=== PATIENT | female | born 1960 | race Caucasian/White ===

== ENCOUNTER 2020-05-05 09:26 | Emergency (ER) | payer MEDICARE, MEDICAID ==
--- NOTE | 2020-05-05 10:36 | ED Physician Documentation ---
PD HPI BACK PAIN - Stated complaint Stated Complaint: PX IN LEGS, DIFFICULTY WALKING - Chief complaint Chief Complaint: Back Pain - History obtained from History obtained from: Patient - History of Present Illness Timing - details: Abrupt onset (She does have history of chronic low back pain which is generally mild to moderate. She denies daily pain medicines. She has had a significant increase in the back pain over the last several days to a week with weakness of the right leg in particular and pain radiating. Difficulty walking.), Still present Location: Lower, Right (mostly), Left Quality: Pain, Aching Associated symptoms: Weakness (right leg), Numbness (some both legs, more to right, anterolateral thigh and anterior lower leg.). No: Fever Improves with: No: Rest, Meds Worsened by: Movement. No: Palpation Contributing factors: No: Lifting, Twisting, Anticoagulated Similar symptoms before: Diagnosis (History of low back pain with prior lumbar surgery in 2001. Occasional pains at times and then more consistent recently but only in the last few weeks has it been significantly hurting and now progressive weakness and numbness of the leg.) Recently seen: Not recently seen Review of Systems Constitutional: denies: Fever, Chills Nose: denies: Rhinorrhea / runny nose, Congestion Throat: denies: Sore throat Respiratory: denies: Cough GI: denies: Abdominal Pain, Nausea, Vomiting, Diarrhea Skin: denies: Rash, Lesions Musculoskeletal: reports: Neck pain (Has neck pain with prior neck fusion and has a eye specialist in [place]. She actually had an appointment with him next week regarding her neck), Back pain. denies: Extremity pain Neurologic: reports: Focal weakness (right leg, with it not being able to support her with walking, causing falling.), Numbness (some both legs, left more chronic, but acutely with right lower leg numbness anteriorly to foot.), Other (no numbness in perineal area.) Psychiatric: denies: Depressed Immunocompromised: denies: Immunocompromised PD PAST MEDICAL HISTORY - Past Medical History Past Medical History: Yes Cardiovascular: None Respiratory: None Neuro: Other Endocrine/Autoimmune: None GI: None Psych: Depression, Anxiety Musculoskeletal: Chronic back pain (but only mild level) Other Past Medical History: Berenice Perez - Past Surgical History Past Surgical History: Yes General: Cholecystectomy, Colonoscopy /ASSISTANT PROFESSOR OF NURSING: section, Tubal ligation, Hysterectomy - Present Medications Home Medications: Ambulatory Orders Medication Instructions Recorded Confirmed Albuterol Sulfate [Proair 90 mcg INH PRN PRN 05/05/20 05/05/20 Respiclick] Cholecalciferol [Vitamin D3] 5,000 unit PO BID 05/05/20 05/05/20 Cyclobenzaprine [Flexeril] 10 mg PO DAILY 05/05/20 05/05/20 Eletriptan HBr [Relpax] 20 mg PO DAILY 05/05/20 05/05/20 Escitalopram [Lexapro] 10 mg PO DAILY 05/05/20 05/05/20 Gabapentin [Neurontin] 300 mg PO DAILY 05/05/20 05/05/20 [place]-3 Fatty Acids/Fish Oil 1 each PO DAILY 05/05/20 05/05/20 [[place] [facility]-3 Fish Oil 1,000 mg Sfgl] Potassium Chloride 10 meq PO DAILY 05/05/20 05/05/20 Zolpidem Tartrate [Ambien] 10 mg PO DAILY 05/05/20 05/05/20 - Allergies Allergies/Adverse Reactions: Allergies Allergy/AdvReac Type Severity Reaction Status Date / Time acetaminophen [From Vicodin] Allergy Unknown Verified 05/05/20 09:44 bee venom protein (honey bee) Allergy Unknown Verified 05/05/20 09:44 bupropion [From Wellbutrin] Allergy Unknown Verified 05/05/20 09:44 codeine Allergy Unknown Verified 05/05/20 09:44 duloxetine [From Cymbalta] Allergy Unknown Verified 05/05/20 09:44 hydrocodone [From Vicodin] Allergy Unknown Verified 05/05/20 09:44 hydromorphone [From Dilaudid] Allergy Nausea Verified 05/05/20 09:44 ibuprofen Allergy Unknown Verified 05/05/20 09:44 methylphenidate Allergy Unknown Verified 05/05/20 09:44 [From Ritalin] pravastatin Allergy Unknown Verified 05/05/20 09:44 trazodone Allergy Unknown Verified 05/05/20 09:44 vaccines Allergy Unknown Uncoded 05/05/20 09:44 - Social History Does the pt smoke?: No Smoking Status: Never smoker Does the pt drink ETOH?: Yes Does the pt have substance abuse?: No - Immunizations Immunizations are current?: Yes PD ED PE NORMAL - Vitals Vital signs reviewed: Yes - General General: Alert and oriented X 3, Well developed/nourished, Other (appears in pain from low back) - Neck Neck: Supple, no meningeal sign, No adenopathy - Cardiac Cardiac: RRR, No murmur - Respiratory Respiratory: Clear bilaterally - Abdomen Abdomen: Normal bowel sounds, Soft, Non tender, Non distended, Other (obese) - Female Female : Deferred - Rectal Rectal: Other (normal sensation in perirectal area and normal muscle tone. Able to hold urine. normal sensation outer labial area. ) - Derm Derm: Normal color, Warm and dry - Extremities Extremities: No edema, No calf tenderness / cord - Neuro Neuro: Alert and oriented X 3, Other (Leg weakness for extension at knee, but good movement ankle and toes on right. Left with good movement. Decreased sensation right leg anterior thigh/anteromedial lower leg. Diminished reflex right knee. Okay at achilles. ) Eye Opening: Spontaneous Motor: Obeys Commands Verbal: Oriented GCS Score: 15 - Psych Psych: Normal mood Results - Vitals Vitals: Vital Signs - 24 hr 05/05/20 05/05/20 05/05/20 09:30 11:38 14:18 Temperature 36.2 C L Heart Rate 98 86 105 H Respiratory 16 18 18 Rate Blood Pressure 154/116 H 155/89 H 169/94 H O2 Saturation 100 100 99 Oxygen O2 Source Room air - Labs Labs: Laboratory Tests 05/05/20 05/05/20 11:29 11:29 WBC 7.7 RBC 5.10 Hgb 14.1 Hct 45.3 MCV 88.8 MCH 27.6 MCHC 31.1 L RDW 13.8 Plt Count 289 MPV 10.4 Neut # (Auto) 3.9 Lymph # (Auto) 3.0 Fisher # (Auto) 0.6 Eos # (Auto) 0.1 Baso # (Auto) 0.0 Absolute Nucleated RBC 0.00 Nucleated RBC % 0.0 Sodium 137 Potassium 3.9 Chloride 97 L Carbon Dioxide 28 Anion Gap 12.0 BUN 14 Creatinine 0.7 Estimated GFR (MDRD) 86 L Glucose 98 Calcium 9.1 Total Bilirubin 0.9 AST 20 ALT 23 Alkaline Phosphatase 71 C-Reactive Protein 1.5 H Total Protein 7.9 Albumin 4.0 Globulin 3.9 Albumin/Globulin Ratio 1.0 - Rads (name of study) lumbar CT Radiology: Prelim report reviewed (multilevel disc problems. Significant canal stenosis L3/4 and L4/5 and severe neural foraminal encroachment L4/5 level. ), See rad report PD MEDICAL DECISION MAKING - ED course Complexity details: re-evaluated patient (After pain medication the patient is more comfortable with movement. Attempting to walk, however, her right leg does not seem to support her and gives out and not appearing to be from pain per se. Seems to be the support at the knee.), considered differential (Unable to get MRI this afternoon. Will get CT. We will also give pain medicines and muscle relaxant and anti-inflammatories.), d/w patient, d/w sap solution manager consultant (I talked with on-call for spine surgery in [place] at which the patient does have a specialist. Reviewed the findings and given that she has abruptly new pain and weakness of the leg, they did agree to transfer for pain control and further evaluation. No caudal symptoms to suggest urgent surgery.) Departure - Departure Disposition: 02 Transfer Acute Care Hosp Clinical Impression: Right leg weakness, Low back pain Condition: Stable
[2020-05-05] MEDS ORDERED: KETOROLAC 30 MG/ML VIAL IVP STA (11:13)
[2020-05-05] MEDS ORDERED: fentaNYL 100 MCG/2 ML VIAL IVP STA (11:15)
[2020-05-05 11:36] LABS: BASOPHILS % (AUTO) 0.5 %; EOSINOPHILS # (AUTO) 0.1 10^3/uL (0.0-0.7); EOSINOPHILS % (AUTO) 1.6 %; HGB - HEMOGLOBIN 14.1 g/dL (12.0-16.0); LYMPHOCYTES % (AUTO) 38.8 %; MEAN CORPUSCULAR HEMOGLOBIN 27.6 pg (27.0-31.0); MEAN CORPUSCULAR HGB CONC 31.1 g/dL (32.0-36.0); MEAN CORPUSCULAR VOLUME 88.8 fL (81.0-99.0); MEAN PLATELET VOLUME 10.4 fL (7.9-10.8); MONOCYTES # (AUTO) 0.6 10^3/uL (0.0-1.0); MONOCYTES % (AUTO) 8.3 %; NEUTROPHILS # (AUTO) 3.9 10^3/uL (1.5-6.6); NEUTROPHILS % (AUTO) 50.4 %; PLT - PLATELET COUNT 289 10^3/uL (130-450); RED CELL DISTRIBUTION WIDTH 13.8 % (12.0-15.0); WHITE BLOOD COUNT 7.7 x10^3/uL (4.8-10.8)
[2020-05-05 11:53] LABS: BILIRUBIN,TOTAL 0.9 mg/dL (0.2-1.0); CALCIUM 9.1 mg/dL (8.5-10.3); CREATININE 0.7 mg/dL (0.4-1.0); CRP - C-REACTIVE PROTEIN 1.5 mg/dL (0-1.0); TOTAL PROTEIN 7.9 g/dL (6.7-8.2)
--- NOTE | 2020-05-05 12:15 | CT Report ---
PROCEDURE: LUMBAR SPINE WO INDICATIONS: Acute onset low back pain and right lower extremity weakness TECHNIQUE: Noncontrast 3 mm thick sections acquired from the T12 level to the sacrum. Sagittal and coronal refo rmats were constructed. For radiation dose reduction, the following was used: automated exposure co ntrol, adjustment of mA and/or kV according to patient size. COMPARISON: None. FINDINGS: Image quality: Excellent. Bones: Vertebral body heights are maintained. There is no lumbar spine fracture. There is degenerativ e anterolisthesis of L4 on L5 measuring approximately 4 mm. Otherwise normal alignment. Multilevel mu ltifactorial degenerative changes characterized by disc height loss with degenerative endplate change and facet hypertrophy. Facet hypertrophy is most notable from L3-L4 through L5-S1. T12-L1: No spinal canal or neural foraminal stenosis. L1-L2: Diffuse disc bulge flattens ventral thecal sac. Foraminal components of the disc bulge and mil d bilateral neural foraminal stenosis. L2-L3: Diffuse disc bulge with a superimposed broad-based posterior disc protrusion flattens and i ndents the ventral thecal sac. Foraminal components of this bulge combined with facet hypertrophy and buckling of the ligamentum flavum to produce moderate left and mild right neural foraminal stenosis. L3-L4: Diffuse disc bulge and a superimposed broad-based posterior disc protrusion combine with buc sherron of the ligamentum flavum and bulky facet hypertrophy to produce severe spinal canal stenosis. T hecal sac is narrowed to a maximum AP dimension of 4-5 mm at midline (series 4 image 52). Foraminal c omponents of the disc bulge combined with facet hypertrophy and neural foraminal collapse to produce moderate-severe right and moderate left neural foraminal stenosis. L4-L5: Diffuse disc bulge and a superimposed broad-based posterior disc protrusion flattening the v entral thecal sac. Bulky facet hypertrophy and buckling of ligamentum flavum further contributes to o verall moderate spinal canal stenosis. The thecal sac is narrowed to a maximum AP dimension of 5-6 mm at midline (series 4 image 60). These factors all combine to produce severe bilateral neural foramin al stenosis with flattening of the exiting bilateral L4 nerve roots. L5-S1: Diffuse disc bulge with a superimposed broad-based posterior disc protrusion. No obvious spi nal canal or subarticular zone stenosis. Foraminal component is a disc bulge combined with neural for aminal height loss and facet hypertrophy to produce moderate and right greater than left neural nicole inal stenosis. Soft tissues: Prevertebral and paraspinous soft tissues are within normal limits. The included portio ns of the lung bases are clear. Bilateral renal cysts which are indeterminate on the basis of interna l attenuation. On the left, this measures 1.9 cm and projects exophytically from the left posterolate ral kidney, with internal attenuation of 40 Hounsfield units. On the right, there is a exophytic medi ally projecting lesion arising from the medial aspect of the right kidney measuring 1.7 cm with inter nal attenuation of 32 Hounsfield units. IMPRESSION: Severe spinal canal stenosis at L3-L4 and moderate spinal canal stenosis at L4-L5. Varying degrees of neural foraminal stenosis, with suspected multilevel moderate and severe stenosis as described above. Bilateral renal masses which are indeterminate on the basis of density. These could represent protein aceous cysts, although this cannot be determined definitively based on this unenhanced CT exam. Initi al follow-up ultrasound is recommended to further characterize these lesions. Ultimately, a renal pro tocol CT or MRI may be needed for definitive characterization. Reviewed by: Judah Lugo MD on 05/05/2020 12:13 PM PST Approved by: Judah Lugo MD on 05/05/2020 12:13 PM PST Station ID: [id number]
[2020-05-05] MEDS ORDERED: KETOROLAC 30 MG/ML VIAL IM STA (12:24)
[2020-05-05] MEDS ORDERED: MORPHINE 10 MG/ML VIAL IM STA ×2 (12:25→15:46)
[2020-05-05] MEDS ORDERED: CHERRY SYRUP 10 ML UDC PO ONE (13:44)
[2020-05-05] MEDS ORDERED: DEXAMETHASONE 10 MG/ML VIAL PO STA (13:44)
[2020-05-05] MEDS ORDERED: oxyCODONE 5 MG TABLET PO STA (17:49)
[2020-05-05] MEDS ORDERED: LORazepam 0.5 MG TABLET PO STA (20:17)
[2020-05-05 21:01] VITALS: BP 157/93
== END 2020-05-05 21:10 | disposition short-term general hospital (02) ==
LOC: ED 09:26
DX: M51.26 Other intervertebral disc displacement, lumbar region (principal); M48.061 Spinal stenosis, lumbar region without neurogenic claudication; R29.898 Other symptoms and signs involving the musculoskeletal system; R20.0 Anesthesia of skin
CPT/HCPCS: 36415; 72131; 80053; 85025; 86140; 96372; 99284; 99285; A9270

== ENCOUNTER 2020-05-05 21:05 | Outpatient (CLI) | payer MEDICARE, MEDICAID | END 2020-05-05 21:06 | disposition short-term general hospital (02) | LOC: EMS 21:05 | PROVIDERS: ATTEND Surgery | DX: M79.605 Pain in left leg (principal); M79.604 Pain in right leg; M54.9 Dorsalgia, unspecified; R26.2 Difficulty in walking, not elsewhere classified | CPT/HCPCS: A0425; A0428 ==